=== PATIENT | female | born 1975 | race Caucasian/White ===

== ENCOUNTER → 2017-09-04 09:04 | Outpatient (CLI) | payer BC, SELFPAY ==
--- NOTE | 2017-09-04 09:15 | RAD_ITS ---
STUDY: AIR-CONTRAST UPPER GI SERIES. Small bowel follow-through examination. REASON FOR EXAM: Female, 42 years old. Heartburn and abdominal bloating with the right lower quadrant pain. FLUOROSCOPY TIME (if supplied): (1:30) minutes/seconds TECHNIQUE: The patient ingested barium. Multiple images of the esophagus, stomach and duodenum were obtained. A small bowel follow through examination within obtained. COMPARISON: None. FINDINGS: The esophagus is unremarkable. There is no evidence of hiatal hernia. There is no evidence of esophageal reflux. The stomach and duodenum are unremarkable. The stomach and duodenum are unremarkable. There is no evidence of ulceration. No mass lesion is seen. A small bowel follow-through examination was then performed. The transit time is normal. There is no evidence of intrinsic or extrinsic small bowel disease. RAD/Upper GI/w Small Bowel IMPRESSION: Unremarkable examination. Electronically Signed: Colby Grady MD at 8:51 EDT Tel [phone], Service support ,
== END ==
PROVIDERS: Family Provider Family Medicine; PCP Family Medicine; Visit Provider Nurse Practitioner Family
DX: R10.11 Right upper quadrant pain (principal); R14.0 Abdominal distension (gaseous)
CPT/HCPCS: 74249